=== PATIENT | female | born 1945 | race Caucasian/White ===

== ENCOUNTER 2024-11-05 15:41 | Emergency (ER) | payer OTHER, SELFPAY ==
[2024-11-05] VITALS (15 sets, daily range): BP systolic 128–173; BP diastolic 69–85; PULSE 79–87; RESP 14–19; TEMP 36.4–36.6; O2SAT 94–98; BMI 36.3
--- NOTE | 2024-11-05 18:11 | PC.NURSE ---
Pt ambulated on to stretcher w/ steady gait. Pt c/o swelling to neck, fever, chills, stuffy ears, generalized fatigue. Pt denies sick contacts as far as pt knows. Pt denies CP/SOB/headache at this time. Call light within reach, awaiting provider at this time.
--- NOTE | 2024-11-05 19:01 | DI.RAD.S_ITS ---
PROCEDURE: XR CHEST 1V INDICATIONS: Shortness of breath TECHNIQUE: One view of the chest was acquired. COMPARISON: None. FINDINGS: Surgical changes and devices: None. Lungs and pleura: Lungs are clear. No pleural effusions or pneumothorax. Mediastinum: Mediastinal contours appear normal. Heart size is normal. Bones and chest wall: No suspicious bony lesions. Overlying soft tissues appear unremarkable. IMPRESSION: No acute cardiopulmonary abnormality is seen. Dictated by: Cricket Valentine M.D. on 11/05/2024 at 19:16 Approved by: Cricket Valentine M.D. on 11/05/2024 at 19:16
--- NOTE | 2024-11-05 19:01 | EKG_ITS ---
[facility] [address] [address] Test Date: 2024-11-05 Pat Name: Makenzie Cardona Department: [facility] Room: Gender: Female Radiation Officer: VICTOR MANUEL : 1945 Requested By: Order Number: [id number] [place] MD: Gilmer Turner MD Measurements Intervals [place] Rate: 84 P: 48 RI: 190 QRS: -10 QRSD: 102 T: 3 QT: 404 QTc: 477 Interpretive Statements Normal sinus rhythm with sinus arrhythmia Electronically Signed On 11-09-2024 15:03:04 PDT by Gilmer Turner MD
[2024-11-05 19:53] LABS: Prothrombin Time 10.8 SECONDS (9.4-12.5)
[2024-11-05 19:56] LABS: Lactate (Lactic Acid) 1.3 mmol/L (0.7-2.1)
[2024-11-05 19:57] LABS: Alanine Aminotransferase 24 IU/L (<35); Albumin 4.6 g/dL (3.5-5.0); Albumin Globulin Ratio 1.5 (1.0-2.8); Alkaline Phosphatase 79 U/L (38-126); Aspartate Aminotransferase 28 IU/L (14-36); BUN Creatinine Ratio 14.4 (6-22); Bilirubin Total 1.1 mg/dL (0.2-1.3); Blood Urea Nitrogen 13 mg/dL (7-17); Calcium 9.1 mg/dL (8.4-10.2); Carbon Dioxide 29 mmol/L (22-32); Chloride 86 mmol/L (98-107); Estimated Glomerular Filt Rate > 60 mL/min (>60); Glucose 122 mg/dL (70-99); HEMOLYSIS < 15 (0-50); Potassium 2.8 mmol/L (3.4-5.1); Sodium 126 mmol/L (137-145); Total Protein 7.6 g/dL (6.3-8.2)
[2024-11-05 20:00] LABS: Add Manual Diff / Slide Review NO; Basophils Absolute Auto 100 /uL (0-100); Basophils Percent Auto 0.6 % (0-2); Eosinophils Absolute Auto 100 /uL (0-450); Eosinophils Percent Auto 1.2 % (2-4); Hematocrit 36.3 % (36-46); Hemoglobin 13.1 g/dL (12.0-16.0); Lymphocytes Absolute Auto 1600 /uL (1100-4500); Lymphocytes Percent Auto 18.8 % (25-40); Mean Corpuscular Hemoglobin 31.4 PG (26-34); Mean Corpuscular Volume 87.1 fL (80-100); Monocytes Absolute Auto 700 /uL (0-900); Monocytes Percent Auto 8.2 % (3-14); Neutrophils Absolute Auto 5900 /uL (1500-7000); Neutrophils Percent Auto 71.2 % (50-75); Platelet Count 342 X10^3/uL (150-400); Red Blood Cell Count 4.17 X10^6/uL (4.0-5.2); Red Cell Distribution Width 13.8 % (11.6-14.8); White Blood Cell Count 8.2 X10^3/uL (4.5-11.0)
[2024-11-05 20:05] LABS: Mean Corpuscular HGB Conc 36.1 % (30-36)
[2024-11-05 20:09] LABS: NT-proBNP (BNP-Adult 18+) 276 pg/mL (<450); Troponin I < 0.012 ng/mL (0.01-0.034)
--- NOTE | 2024-11-05 22:25 | ED.GENADULT ---
HPI - General Adult General Chief complaint: Upper Respiratory Symptoms Stated complaint: SOB, weak neck swollen ears plugged Time Seen by Provider: 11/05/24 18:33 Source: patient Mode of arrival: Wheelchair History of Present Illness HPI narrative: 78-year-old woman with a history of hypertension, hyperlipidemia complains that for the last 3 weeks she has noticed increasing swelling around her neck, ears are plugged increasing fatigue, cough, weakness and general malaise. She denies dyspnea or chest pain. No change to medications or other daily routines. Related Data Home Medications ?Medication ?Instructions ?Recorded ?Confirmed amlodipine 10 mg tablet 10 mg PO DAILY 11/05/24 11/05/24 aspirin 81 mg tablet,delayed 81 mg PO DAILY 11/05/24 11/05/24 release (Adult Aspirin Regimen) atenolol 50 mg tablet 50 mg PO BID 11/05/24 11/05/24 losartan 100 1 tab PO DAILY 11/05/24 11/05/24 mg-hydrochlorothiazide 25 mg tablet rosuvastatin 20 mg tablet 20 mg PO ONCE PM 11/05/24 11/05/24 Previous Rx's ?Medication ?Instructions ?Recorded losartan 100 mg tablet 100 mg PO DAILY #90 tabs 11/06/24 potassium chloride 8 mEq 8 meq PO DAILY #14 tabs 11/06/24 tablet,extended release Allergies Allergy/AdvReac Type Severity Reaction Status Date / Time No Known Drug Allergies Allergy Verified 11/05/24 15:55 Review of Systems Review of Systems Narrative: Pertinent positive and negative findings as per HPI Patient History Social History Smoking Status: Never smoker Smoking Status: Never smoker Exam Initial Vital Signs Initial Vital Signs: Vital Signs Temperature 97.6 F 11/05/24 15:54 Pulse Rate 80 11/05/24 15:54 Respiratory Rate 18 11/05/24 15:54 Blood Pressure 150/71 H 11/05/24 15:54 Pulse Oximetry 97 11/05/24 15:54 Oxygen Delivery Method Room Air 11/05/24 15:54 General: Fatigued appearing, in no acute distress. Able to give a complete and coherent history. HEENT: Moist mucous membranes, normal sclera with reactive pupils, Respiratory: Lungs are clear to auscultation, no wheezing no rales no rhonchi. Full and symmetrical air movement Cardiac: Regular rate and rhythm no murmurs no bruits Abdomen: Soft, nontender, no rebound or guarding, no flank pain Skin: Warm and dry, no rashes Neurologic: Globally weak but otherwise Grossly neurologically intact with no obvious asymmetries or abnormalities Extremities: No trauma, no significant lower extremity edema Psych: Cooperative, appropriate insight and affect Course Orders Ordered: ED Orders 11/05/24 19:01 XR chest 1V Stat EKG-12 Lead Stat Measure peak expiratory flow STAT RT Consult Eval and Treat STAT 11/05/24 19:34 Complete Blood Count AUTO DIFF Stat Comprehensive Metabolic Panel Stat Lactate (Lactic Acid) Stat NT-proBNP (BNP-Adult 18+) Stat Prothrombin Time INR Stat Troponin I Stat Discontinued Medications Sodium Chloride (Normal Saline 0.9%) 1,000 mls @ 1,000 mls/hr IV BOLUS ONE Stop: 11/05/24 23:28 Last Admin: 11/05/24 22:58 Dose: 1,000 mls/hr Documented By: RENETTA POTASSIUM CHLORIDE IN WATER (Potassium Cl 10 Meq/100 Ml Estephania) 10 meq in 100 mls @ 100 mls/hr IV Q1H IRAIS Stop: 11/06/24 00:29 Last Admin: 11/05/24 23:58 Dose: 100 mls/hr Documented By: Infusion: 11/05/24 23:58 Dose: Infused Documented By: Admin: 11/05/24 22:59 Dose: 100 mls/hr Documented By: RENETTA Potassium Chloride (Potassium Chloride 20 Meq Tab) 40 meq PO NOW ONE Stop: 11/05/24 22:30 Last Admin: 11/05/24 22:58 Dose: 40 meq Documented By: RENETTA Vital Signs Vital signs: Vital Signs - 8 hr 11/05/24 18:07 11/05/24 18:07 11/05/24 18:30 Temperature 97.8 F Pulse Rate 83 86 Respiratory Rate Blood Pressure 140/74 Pulse Oximetry 95 97 11/05/24 18:30 11/05/24 19:00 11/05/24 19:00 Temperature Pulse Rate 87 Respiratory Rate Blood Pressure 147/69 H 149/75 H Pulse Oximetry 96 11/05/24 19:30 11/05/24 19:52 11/05/24 19:52 Temperature Pulse Rate 84 85 Respiratory Rate Blood Pressure 143/71 H Pulse Oximetry 96 96 11/05/24 20:00 11/05/24 20:00 11/05/24 20:30 Temperature Pulse Rate 83 Respiratory Rate Blood Pressure 139/71 131/73 Pulse Oximetry 96 11/05/24 20:30 11/05/24 21:00 11/05/24 21:00 Temperature Pulse Rate 79 79 Respiratory Rate 14 14 Blood Pressure 133/76 Pulse Oximetry 95 95 11/05/24 21:30 11/05/24 21:30 11/05/24 22:00 Temperature Pulse Rate 81 81 Respiratory Rate 14 14 Blood Pressure 144/78 H Pulse Oximetry 94 95 11/05/24 22:00 11/05/24 22:30 11/05/24 22:30 Temperature Pulse Rate 79 Respiratory Rate 16 Blood Pressure 134/80 128/78 Pulse Oximetry 97 11/05/24 22:44 11/05/24 22:44 11/05/24 23:00 Temperature Pulse Rate 85 Respiratory Rate 19 16 Blood Pressure 173/85 H Pulse Oximetry 98 95 Medical Decision Making Lab Data 11/05/24 19:34 11/05/24 19:34 Labs: Lab Results 11/05/24 Range/Units 19:34 WBC 8.2 (4.5-11.0) X10^3/uL RBC 4.17 (4.0-5.2) X10^6/uL Hgb 13.1 (12.0-16.0) g/dL Hct 36.3 (36-46) % MCV 87.1 (80-100) fL MCH 31.4 (26-34) PG MCHC 36.1 H (30-36) % RDW 13.8 (11.6-14.8) % Plt Count 342 (150-400) X10^3/uL Neut % (Auto) 71.2 (50-75) % Lymph % (Auto) 18.8 L (25-40) % [place] % (Auto) 8.2 (3-14) % Eos % (Auto) 1.2 L (2-4) % Baso % (Auto) 0.6 (0-2) % Neut # (Auto) 5900 (3110-7362) /uL Lymph # (Auto) 1600 (0999-4979) /uL [place] # (Auto) 700 (0-900) /uL Eos # (Auto) 100 (0-450) /uL Baso # (Auto) 100 (0-100) /uL PT 10.8 (9.4-12.5) SECONDS INR 1.0 (0.9-1.3) Sodium 126 L (137-145) mmol/L Potassium 2.8 L (3.4-5.1) mmol/L Chloride 86 L (98-107) mmol/L Carbon Dioxide 29 (22-32) mmol/L BUN 13 (7-17) mg/dL Creatinine 0.90 (0.52-1.04) mg/dL Estimated GFR > 60 (>60) mL/min BUN/Creatinine Ratio 14.4 (6-22) Glucose 122 H (70-99) mg/dL Lactate 1.3 (0.7-2.1) mmol/L Calcium 9.1 (8.4-10.2) mg/dL Total Bilirubin 1.1 (0.2-1.3) mg/dL AST 28 (14-36) IU/L ALT 24 (<35) IU/L Alkaline Phosphatase 79 (38-126) U/L Troponin I < 0.012 (0.01-0.034) ng/mL NT-Pro-B Natriuret Pep 276 (<450) pg/mL Total Protein 7.6 (6.3-8.2) g/dL Albumin 4.6 (3.5-5.0) g/dL Globulin 3.0 (1.7-4.1) g/dL Albumin/Globulin Ratio 1.5 (1.0-2.8) MDM Narrative Medical decision making narrative: CC: General malaise, swollen neck, weakness, Complicating co-morbidities: Hypertension, hyperlipidemia Data collected from: patient Social determinants of health that may influence the patients condition: Currently visiting [place], they live closer to [place] Differential considered: Viral syndrome, acute coronary syndrome, significant electrolyte abnormality Exam documented above, pertinent findings include: Globally weak but alert and appropriate and otherwise unremarkable Lab Test results independently reviewed as above. Pertinent findings: CBC is unremarkable no anemia Chemistries show hyponatremia at 126., hypokalemia at 2.8, chloride is low as 86. Appropriate creatinine. Glucose minimally elevated at 122. Troponin is undetected Lactic acid is normal Independently reviewed EKG: Sinus rhythm at a rate of 84 with no acute ischemia Imaging studies independently reviewed: Chest x-ray is unremarkable Treatments: 40 mEq of oral potassium, 10 mEq of IV potassium, normal saline Discussion: 78-year-old woman with progressive weakness no change to medications currently on losartan 100 hydrochlorothiazide 25 has been so for a number of years. Chemistries today shows sodium of 126, potassium 2.8 chloride of 89. Remainder of workup is entirely benign no sign of infection, no cardiac abnormalities no congestive heart failure. Blood pressure while she has been in the emergency department has been slightly elevated. They currently are visiting [place] in their motor home and live closer to [place]. They can follow up with their provider at home if needed. In the emergency department she was given 1 L of saline, 40 mg of oral potassium, 10 mEq of IV potassium. I am going to suggest that she stop her losartan hydrochlorothiazide combination pill. We will give her a new prescription for losartan alone and will ask her to check daily blood pressures to see if additional medications do need to be added. She is currently on maximum dose of amlodipine and moderate dose of atenolol. Suggested that she we will need an appointment in approximately 2 weeks, to bring blood pressure readings with her and will likely need to have blood work repeated to make sure that her chemistries are improving. If she feels she is getting worse, more weak or having new findings or symptoms she is to return to the emergency department Discharge Plan Departure Patient Disposition: Home Clinical Impression: Acute hyponatremia, Acute hypokalemia, Weakness, Hypertension Instructions: DI for Hyponatremia Activity Restrictions/Additional Instructions: Thank you for coming in today I believe your overall symptoms with weakness for the last number of weeks are related to your salt level being low and your potassium level being low. There was no sign of heart attack, infection, significant kidney or liver problems. The hydrochlorothiazide which is part of your losartan hydrochlorothiazide combination pill is the most likely explanation for the low-salt in the low potassium levels. I am going to give you a new prescription for losartan 100 mg without the hydrochlorothiazide. I am also going to give you 2 weeks' worth of potassium supplements to replete your overall potassium stores You do keep track and daily blood pressures as we are getting rid of 1 of your blood pressure medications. You need to schedule an appointment with your primary care doctor in about 2 weeks and the doctor will likely want to repeat your blood work to make sure that your sodium and potassium levels are returning to appropriate levels. If you find that you are getting worse or develop any new symptoms, please feel free to return to the emergency department for further evaluation. Prescriptions: New losartan 100 mg tablet 100 mg PO DAILY Qty: 90 0RF potassium chloride 8 mEq tablet extended release 8 meq PO DAILY Qty: 14 0RF No Action losartan-hydrochlorothiazide 100-25 mg tablet 1 tab PO DAILY amlodipine 10 mg tablet 10 mg PO DAILY atenolol 50 mg tablet 50 mg PO BID rosuvastatin 20 mg tablet 20 mg PO ONCE PM aspirin [Adult Aspirin Regimen] 81 mg tablet,delayed release (DR/EC) 81 mg PO DAILY Stand Alone Forms: Patient Portal/API
[2024-11-05] MEDS: SODIUM CHLORIDE 0.9% 1,000 ML 1000 ML IV (22:58)
[2024-11-05] MEDS: POTASSIUM CHLORIDE 20 MEQ TAB 40 MEQ PO (22:58)
[2024-11-05] MEDS: POTASSIUM CHLORIDE IN WATER 10 MEQ/100 ML PIGGYBACK 100 MEQ IV ×2 (22:59→23:58)
[2024-11-06] VITALS: BP 145/79; PULSE 78; RESP 14; O2SAT 94
[2024-11-06 00:30] VITALS: PULSE 73; RESP 14; O2SAT 95
[2024-11-06 00:31] VITALS: BP 143/80; PULSE 83; RESP 10; O2SAT 96
[2024-11-06 01:00] VITALS: PULSE 80; RESP 16; O2SAT 95
[2024-11-06 01:01] VITALS: BP 151/71; PULSE 78; RESP 19; O2SAT 96
== END 2024-11-06 01:08 | disposition home or self-care (01) ==
PROVIDERS: Emergency Provider Emergency Medicine
DX: E87.1 Hypo-osmolality and hyponatremia (principal); R05.9 Cough, unspecified; E87.6 Hypokalemia; R53.1 Weakness; I10 Essential (primary) hypertension
CPT/HCPCS: 36415; 71045; 80053; 83605; 83880; 84484; 85025; 85610; 93005; 96365; 96366; 99284